=== PATIENT | male | born 1995 | race Two or more races ===

== ENCOUNTER 2023-06-27 00:19 | Emergency (ER) | payer OTHER ==
[~2023-06-27] VITALS: Ht 177.8 cm; Wt 54.5 kg
[2023-06-27] MEDS ORDERED: NO HOME MEDS (01:05)
[2023-06-27 01:19] LABS: BASOPHILS % (AUTO) 0.4 % (0-1); EOSINOPHILS # (AUTO) 0.2 X10'3 (0-0.9); EOSINOPHILS % (AUTO) 2.2 % (0-6); HEMATOCRIT 45.6 % (42.0-52.0); HEMOGLOBIN 15.1 g/dl (14.0-17.9); LYMPHOCYTES # (AUTO) 2.5 X10'3 (1.1-4.8); LYMPHOCYTES % (AUTO) 32.3 % (21-51); MEAN CORPUSCULAR HEMOGLOBIN 28.7 PG (27.0-31.0); MEAN CORPUSCULAR HGB CONC 33.2 g/dL (33.0-36.5); MEAN CORPUSCULAR VOLUME 86.5 FL (78-98); MEAN PLATELET VOLUME 8.3 FL (7.4-10.4); MONOCYTES # (AUTO) 0.8 X10'3 (0-0.9); MONOCYTES % (AUTO) 10.5 % (2-12); NEUTROPHILS # (AUTO) 4.2 X10'3 (1.8-7.7); NEUTROPHILS % (AUTO) 54.6 % (42-75); PLATELET COUNT 258 X10'3 (140-440); RED BLOOD COUNT 5.27 X10'6 (4.70-6.10); RED CELL DISTRIBUTION WIDTH 12.6 % (11.5-14.5); WHITE BLOOD COUNT 7.7 X10'3 (4.5-11.0)
[2023-06-27 01:36] LABS: ALANINE AMINOTRANSFERASE 19 U/L (12-78); ALBUMIN 4.1 G/DL (3.4-5.0); ALBUMIN/GLOBULIN RATIO 1.2 (1.1-1.5); ALKALINE PHOSPHATASE 91 IU/L (46-116); ANION GAP 12 (8-16); ASPARTATE AMINO TRANSFERASE 19 U/L (10-37); BILIRUBIN,TOTAL 1.2 MG/DL (0.1-1.0); BLOOD UREA NITROGEN 12 MG/DL (7-18); BUN/CREATININE RATIO 12.5 (10.0-20.0); CALCIUM 8.9 MG/DL (8.5-10.1); CHLORIDE 103 MMOL/L (99-107); CREATININE 0.96 MG/DL (0.60-1.10); GLUCOSE 106 MG/DL (70-104); POTASSIUM 3.2 MMOL/L (3.5-5.1); SODIUM 140 MMOL/L (135-145); TOTAL CARBON DIOXIDE 25.4 MMOL/L (24-32); TOTAL PROTEIN 7.5 G/DL (6.4-8.2); eCRCL 91 ML/MIN; eGFR > 90 ML/MIN
[2023-06-27 01:45] LABS: ETHANOL 126 MG/DL (<10); THYROID STIMULATING HORMONE 1.07 ulU/ml (0.34-4.50)
[2023-06-27] MEDS ORDERED: potassium chloride 10mEq ER tablet PO ONE (02:00)
[2023-06-27] MEDS ORDERED: potassium chloride 10mEq ER tablet PO SCH (02:00)
[2023-06-27] MEDS ORDERED: traZODone 50mg tablet PO ONE (02:40)
[2023-06-27] MEDS ORDERED: NICOTINE POLACRILEX 2 MG LOZENGE BC ONE (02:40)
--- NOTE | 2023-06-27 02:49 | NUR ---
1:1 Interview at bedside. Patient understands he is on a 179 for DTS. Patient describes hearing intermittent voices, "murmors." He denies visual hallucinations. Patient states he has not been sleeping well for a while now. The patient states he is depressed. The patient admits to drinking 4-5 shots of bourbon tonight. He spoke to a female friend juany, he tells this account underwriter that he told the female that "it's not worth it, I don't care what happens." Patient will be brought to bed 26 in the overflow portion of the ER. The patient exhibits understanding.
--- NOTE | 2023-06-27 03:17 | NUR ---
KCL 40 mEq given PO.
[2023-06-27 03:45] LABS: BILIRUBIN,URINE NEGATIVE (Neg); CLARITY,URINE CLEAR (Clear); COLOR,URINE YELLOW (Yellow); GLUCOSE, URINE NEGATIVE (Neg); KETONES,URINE NEGATIVE (Neg); LEUKOCYTE ESTERASE ,URINE NEGATIVE (Neg); NITRITES, URINE NEGATIVE (Neg); OCCULT BLOOD,URINE MODERATE (Neg); PROTEIN,URINE NEGATIVE (Neg); UROBILINOGEN,URINE 0.2 E.U/dL (0.2-1.0)
[2023-06-27 04:04] LABS: UA COLLECTION TYPE CLN CATCH MIDSTREAM
--- NOTE | 2023-06-27 04:04 | NUR ---
Patient is now sleeping quietly. In view from nurses station.
[2023-06-27 04:08] LABS: URINE AMPHETAMINE SCREEN NEGATIVE (Neg); URINE BARBITUATE SCREEN NEGATIVE (Neg); URINE BENZODIAZEPINES SCREEN NEGATIVE (Neg); URINE CANNABINOID SCREEN POSITIVE (Neg); URINE COCAINE SCREEN NEGATIVE (Neg); URINE METHADONE SCREEN NEGATIVE (Neg); URINE OPIATE SCREEN NEGATIVE (Neg); URINE PHENCYCLIDINE SCREEN NEGATIVE (Neg)
[2023-06-27 04:41] LABS: SQUAMOUS EPITHELIAL CELL,UR NONE SEEN /LPF (FEW)
[2023-06-27 04:42] LABS: BACTERIA,URINE FEW /HPF (Neg); WBC,URINE NONE SEEN /HPF (0-4)
--- NOTE | 2023-06-27 05:17 | NUR ---
Patient sleeps quietly, no distress.
--- NOTE | 2023-06-27 07:24 | NUR ---
Patient is sleeping in bed. Respirations are equal and nonlabored.
--- NOTE | 2023-06-27 07:57 | NUR ---
[facility] packet faxed.
[2023-06-27] MEDS ORDERED: nicotine 21mg patch - 24 hr TD SCH (08:00)
--- NOTE | 2023-06-27 09:19 | NUR ---
Patient ate a small amount of breakfast and went back to sleep.
--- NOTE | 2023-06-27 10:23 | NUR ---
[facility] here evaluating patient.
--- NOTE | 2023-06-27 11:00 | NUR ---
Patient was not put on a hold by [facility]. Patient is discharging home. No complaints at this time.
[2023-06-27 11:19] VITALS: BP 111/61; PULSE 65; RESP 16; TEMP 97.4; O2SAT 100
== END 2023-06-27 11:22 | disposition home or self-care (01) ==
LOC: ER 00:20
DX: R45.88 Nonsuicidal self-harm (principal); Z20.822 Contact with and (suspected) exposure to COVID-19; F41.9 Anxiety disorder, unspecified; F32.A Depression, unspecified; F12.90 Cannabis use, unspecified, uncomplicated; Z72.89 Other problems related to lifestyle
CPT/HCPCS: 36415; 80053; 80305; 80320; 81001; 84443; 85025; 87811; 99285